=== PATIENT | female | born 2000 | race Caucasian/White ===

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

== ENCOUNTER 2025-09-13 14:31 | Inpatient (IN) ==
[2025-09-13] MEDS ORDERED: OXYTOCIN 30 UNITS/NSS 30 UNITS/500 ML BAG IV PRN (14:44)
[2025-09-13] MEDS ORDERED: LIDOCAINE 1% LOCAL 20 ML VIAL INFIL PRN (14:44)
[2025-09-13] MEDS ORDERED: LIDOCAINE 2%/EPINEPHRINE 1:200,000 20 ML PF ONE (15:13)
[2025-09-13] MEDS ORDERED: BUPIVACAINE 0.25% PF 30 ML VIAL ONE (15:13)
[2025-09-13] MEDS ORDERED: LIDOCAINE 2% MPF LOCAL 5 ML VIAL EPI PRN (15:32)
[2025-09-13] MEDS ORDERED: diphenhydrAMINE 50 MG/ML VIAL IV PRN (15:32)
[2025-09-13] MEDS ORDERED: BUPIVACAINE 0.25% PF 30 ML VIAL EPI PRN (15:32)
[2025-09-13] MEDS ORDERED: NALOXONE HCL 0.4 MG/1 ML VIAL/CARP IV PRN (15:32)
[2025-09-13] MEDS ORDERED: ROPIVACAINE 0.5% PF 5 MG/ML 20 ML VIAL EPI PRN (15:32)
[2025-09-13] MEDS ORDERED: SODIUM CHLORIDE 0.9% PF INJ 10 ML VIAL EPI PRN (15:32)
[2025-09-13] MEDS ORDERED: NALOXONE HCL 1 MG in SODIUM CHLORIDE 0.9% 1,000 ML IV PRN (15:32)
[2025-09-13] MEDS ORDERED: NALBUPHINE HCL INJ 10 MG/ML AMP IV PRN (15:32)
[2025-09-13] MEDS ORDERED: fentANYL 2 MCG/ML BUPIVacaine 0.125%-NSS 100ML BAG EPI PRN (15:32)
--- NOTE | 2025-09-13 15:32 | Anesthesiology Consultation ---
Date of Service September 13, 2025 Assessment & Plan (1) Encounter for pre-operative examination: Chart Review Chart Review: Patient NOT seen in Pre Admission Testing and Acceptable Risk for Labor Epidural Consults Requested none History Height/Weight Height: 5 ft 4 in Weight: 104.326 kg Allergies Allergy/AdvReac Type Severity Reaction Status Date / Time pollen extracts Allergy Intermediate ITCHY Verified 09/13/25 15:02 EYES, SNEEZING, CONGESTION Medications Home Medications Medication Instructions Recorded Confirmed Last Taken vit no.95-ferrous 1 tab PO DAILY 04/01/25 09/13/25 09/12/25 21:00 fumarate 28 mg-folic acid 800 mcg tablet () acetone (urine) test (Ketone Urine #50 ea 07/01/25 09/12/25 Unknown Test strips) cetirizine 10 mg capsule (Zyrtec) 10 mg PO DAILY PRN allergy 07/01/25 09/13/25 09/12/25 08:00 symptoms #1 cap magnesium 200 mg tablet 200 mg PO DAILY #30 tabs 07/01/25 09/13/25 Unknown blood sugar diagnostic #150 ea 07/03/25 09/12/25 Unknown blood-glucose meter (OneTouch #1 ea 07/03/25 09/12/25 Unknown Ultra2 Meter) lancets 30 gauge (OneTouch Delica #150 ea 07/03/25 09/12/25 Unknown Plus Lancet) FreeStyle Bebeto 3 Plus Sensor #2 ea 07/16/25 09/12/25 Unknown (blood-glucose sensor) Past Medical History Medical History Varicella vaccination Past Family History Family History Grandmother (Maternal) Breast cancer great GM Lung cancer Mother Hypertension Grandmother (Paternal) Breast cancer Father Diabetes Denies family history of Ovarian cancer Colorectal cancer Past Surgical History Surgical History S/P foot surgery, left L ankle, achilles tendon S/P endoscopy x2 Social History Smoking Status: Never smoker Do You Dip or Chew Tobacco: No Hx Alcohol Use: No Hx Substance Use: No Physical Exam Vital Signs Last Vital Signs Temp 97.9 F 09/13/25 14:42 Pulse 58 L 12/12/25 14:42 Resp 19 09/13/25 14:42 BP 137/80 09/13/25 14:42
[2025-09-13 15:48] LABS: Hematocrit (blood only) 38.0 % (37.0-47.0); Hemoglobin 13.0 g/dL (12.0-16.0); Mean Corpuscular Hemoglobin 29.2 pg (25.0-34.0); Mean Corpuscular Volume 85.4 fL (80.0-100.0); Platelet Count 165 K/uL (130-400); RDW Standard Deviation 43.4 fL (36.4-46.3); Red Blood Count 4.45 M/uL (4.20-5.40); White Blood Count 10.43 K/ul (4.8-10.8)
[2025-09-13] MEDS: LACTATED RINGER'S 1,000 ML IV PRN (16:35)
[2025-09-13] MEDS: OXYTOCIN 30 UNITS/NSS 30 UNITS/500 ML BAG IV PRN (16:36)
[2025-09-13] MEDS: BUPIVACAINE 0.25% PF 30 ML VIAL EPI STA (19:09)
[2025-09-13] MEDS: LIDOCAINE 2%/EPINEPHRINE 1:200,000 20 ML PF EPI STA (19:10)
[2025-09-13] MEDS: SODIUM CHLORIDE 0.9% PF INJ 10 ML VIAL EPI STA (19:10)
[2025-09-14] MEDS: LIDOCAINE 2%/EPINEPHRINE 1:200,000 20 ML PF ONE (03:37)
[2025-09-14] MEDS: BUPIVACAINE 0.25% PF 30 ML VIAL ONE (03:38)
[2025-09-14] MEDS: fentANYL 2 MCG/ML BUPIVacaine 0.125%-NSS 100ML BAG ONE (03:39)
[2025-09-14] MEDS: SODIUM CHLORIDE 0.9% PF INJ 10 ML VIAL ONE (04:16)
--- NOTE | 2025-09-14 06:48 | Labor Progress Brief Note ---
Date of Service September 14, 2025 Subjective Sleeping, comfortable with epidural Assessment & Plan (1) Encounter for induction of labor: Plan: Minimal change since moreno out. ROM now and ctx frequency already good so 1/2 pit and climb again. Admission and Anticipated Discharge Date Admission Date: September 13, 2025 Physical Exam Genitourinary: Cervix 3/hi AROM clear fluid FHT Cat 1 Pit @ 16 Ione Q3 Results & Data Vital Signs (Past 12 Hours) Vital Signs Temp Pulse Resp BP Pulse Ox 09/14/25 06:45 59 L 118/58 L 09/14/25 06:43 63 96 09/14/25 06:38 63 96 09/14/25 06:33 62 96 09/14/25 06:31 67 121/68 09/14/25 06:30 18 09/14/25 06:30 18 09/14/25 06:28 60 97 09/14/25 06:27 97.9 F 09/14/25 06:23 66 95 09/14/25 06:18 77 96 09/14/25 06:16 66 124/57 L 09/14/25 06:13 66 95 09/14/25 06:08 61 96 09/14/25 06:06 63 94 09/14/25 06:03 66 95 09/14/25 06:00 73 18 114/63 09/14/25 05:58 60 95 09/14/25 05:57 58 L 94 09/14/25 05:53 67 95 09/14/25 05:51 66 94 09/14/25 05:48 67 95 09/14/25 05:45 66 108/58 L 09/14/25 05:44 65 94 09/14/25 05:43 66 95 09/14/25 05:38 64 95 09/14/25 05:33 64 95 09/14/25 05:31 60 108/59 L 09/14/25 05:30 18 09/14/25 05:30 18 09/14/25 05:28 66 94 09/14/25 05:26 66 94 09/14/25 05:23 61 94 09/14/25 05:20 74 94 09/14/25 05:18 73 95 09/14/25 05:16 54 L 109/59 L 09/14/25 05:14 65 93 09/14/25 05:13 84 93 09/14/25 05:09 70 93 09/14/25 05:08 73 95 09/14/25 05:03 95 09/14/25 05:03 64 09/14/25 05:03 59 L 94 09/14/25 05:01 64 111/54 L 09/14/25 05:00 18 09/14/25 05:00 18 09/14/25 04:58 63 95 09/14/25 04:57 61 94 09/14/25 04:53 60 95 09/14/25 04:51 61 94 09/14/25 04:48 63 95 09/14/25 04:46 62 104/59 L 09/14/25 04:43 95 09/14/25 04:43 65 09/14/25 04:43 63 94 09/14/25 04:38 59 L 95 09/14/25 04:37 59 L 94 09/14/25 04:33 62 95 09/14/25 04:30 53 L 18 110/54 L 09/14/25 04:29 58 L 94 09/14/25 04:28 63 95 09/14/25 04:23 60 95 09/14/25 04:18 57 L 95 09/14/25 04:13 58 L 18 101/54 L 95 09/14/25 04:10 56 L 103/53 L 09/14/25 04:08 56 L 18 96 09/14/25 04:04 55 L 104/52 L 09/14/25 04:03 57 L 18 96 09/14/25 04:00 58 L 109/53 L 09/14/25 03:58 59 L 18 96 09/14/25 03:53 61 18 106/57 L 96 09/14/25 03:48 58 L 18 105/55 L 97 09/14/25 03:43 61 18 100/55 L 97 09/14/25 03:42 56 L 18 100/55 L 09/14/25 03:41 62 104/59 L 09/14/25 03:40 107/55 L 09/14/25 03:39 58 L 18 107/56 L 09/14/25 03:38 97 09/14/25 03:38 63 09/14/25 03:38 55 L 113/58 L 09/14/25 03:33 59 L 98 09/14/25 03:29 78 135/89 09/14/25 03:28 62 98 09/14/25 03:23 62 98 09/14/25 03:18 54 L 96 09/14/25 03:13 56 L 97 09/14/25 02:59 18 09/14/25 02:59 97.5 F L 18 09/14/25 02:29 61 122/69 09/14/25 02:00 18 09/14/25 02:00 18 09/14/25 01:30 18 09/14/25 01:30 18 09/14/25 01:29 52 L 118/57 L 09/14/25 01:00 18 09/14/25 01:00 18 09/14/25 00:29 53 L 115/58 L 09/14/25 00:00 18 09/13/25 23:30 18 09/13/25 23:30 18 09/13/25 23:29 55 L 09/13/25 23:29 113/64 09/13/25 23:00 18 09/13/25 23:00 97.5 F L 18 09/13/25 22:30 55 L 09/13/25 22:30 112/57 L 09/13/25 21:30 18 09/13/25 21:30 18 09/13/25 21:30 51 L 09/13/25 21:30 116/60 09/13/25 21:00 18 09/13/25 21:00 97.5 F L 18 09/13/25 20:34 56 L 09/13/25 20:34 136/72 09/13/25 20:30 18 09/13/25 20:30 18 09/13/25 19:44 18 09/13/25 19:44 18 09/13/25 19:30 18 09/13/25 19:30 18 09/13/25 19:29 52 L 09/13/25 19:29 118/59 L 09/13/25 19:00 97.7 F 18 09/13/25 18:57 56 L 09/13/25 18:57 116/60 Coding Level of Care Code None Diagnoses Encounter for induction of labor Z34.90
--- NOTE | 2025-09-14 08:48 | Labor Progress Brief Note ---
Date of Service September 14, 2025 Subjective comfortable Assessment & Plan (1) Encounter for induction of labor: (2) Gestational diabetes: (3) Obesity affecting : Plan continue current management plan, fetus overall category one. monitor closely. Admission and Anticipated Discharge Date Admission Date: September 13, 2025 Physical Exam Physical Exam: cx--4/50/-2 iupc placed as unable to track contractions efm--150s with min to mod variability, accels present, +scalp stim, early decels with some contractions Results & Data Vital Signs (Past 12 Hours) Vital Signs Temp Pulse Resp BP Pulse Ox 09/14/25 08:46 65 110/57 L 09/14/25 08:43 68 97 09/14/25 08:38 55 L 98 09/14/25 08:33 69 97 09/14/25 08:30 61 101/55 L 09/14/25 08:28 54 L 96 09/14/25 08:23 58 L 96 09/14/25 08:18 78 97 09/14/25 08:15 62 122/62 09/14/25 08:13 62 96 09/14/25 08:08 68 95 09/14/25 08:03 57 L 95 09/14/25 08:00 55 L 18 126/64 09/14/25 07:58 71 96 09/14/25 07:53 60 96 09/14/25 07:48 85 96 09/14/25 07:45 62 122/59 L 09/14/25 07:43 58 L 96 09/14/25 07:38 58 L 96 09/14/25 07:33 66 96 09/14/25 07:30 57 L 127/66 09/14/25 07:28 62 96 09/14/25 07:23 66 97 09/14/25 07:18 63 96 09/14/25 07:15 37.0 C 62 18 121/58 L 09/14/25 07:13 65 96 09/14/25 07:09 64 94 09/14/25 07:08 59 L 96 09/14/25 07:03 64 96 09/14/25 07:00 63 121/56 L 09/14/25 06:58 63 96 09/14/25 06:53 60 96 09/14/25 06:48 60 95 09/14/25 06:45 59 L 118/58 L 09/14/25 06:43 63 96 09/14/25 06:38 63 96 09/14/25 06:33 62 96 09/14/25 06:31 67 121/68 09/14/25 06:30 18 09/14/25 06:30 18 09/14/25 06:28 60 97 09/14/25 06:27 36.6 C 09/14/25 06:23 66 95 09/14/25 06:18 77 96 09/14/25 06:16 66 124/57 L 09/14/25 06:13 66 95 09/14/25 06:08 61 96 09/14/25 06:06 63 94 09/14/25 06:03 66 95 09/14/25 06:00 73 18 114/63 09/14/25 05:58 60 95 09/14/25 05:57 58 L 94 09/14/25 05:53 67 95 09/14/25 05:51 66 94 09/14/25 05:48 67 95 09/14/25 05:45 66 108/58 L 09/14/25 05:44 65 94 09/14/25 05:43 66 95 09/14/25 05:38 64 95 09/14/25 05:33 64 95 09/14/25 05:31 60 108/59 L 09/14/25 05:30 18 09/14/25 05:30 18 09/14/25 05:28 66 94 09/14/25 05:26 66 94 09/14/25 05:23 61 94 09/14/25 05:20 74 94 09/14/25 05:18 73 95 09/14/25 05:16 54 L 109/59 L 09/14/25 05:14 65 93 09/14/25 05:13 84 93 09/14/25 05:09 70 93 09/14/25 05:08 73 95 09/14/25 05:03 95 09/14/25 05:03 64 09/14/25 05:03 59 L 94 09/14/25 05:01 64 111/54 L 09/14/25 05:00 18 09/14/25 05:00 18 09/14/25 04:58 63 95 09/14/25 04:57 61 94 09/14/25 04:53 60 95 09/14/25 04:51 61 94 09/14/25 04:48 63 95 09/14/25 04:46 62 104/59 L 09/14/25 04:43 95 09/14/25 04:43 65 09/14/25 04:43 63 94 09/14/25 04:38 59 L 95 09/14/25 04:37 59 L 94 09/14/25 04:33 62 95 09/14/25 04:30 53 L 18 110/54 L 09/14/25 04:29 58 L 94 09/14/25 04:28 63 95 09/14/25 04:23 60 95 09/14/25 04:18 57 L 95 09/14/25 04:13 58 L 18 101/54 L 95 09/14/25 04:10 56 L 103/53 L 09/14/25 04:08 56 L 18 96 09/14/25 04:04 55 L 104/52 L 09/14/25 04:03 57 L 18 96 09/14/25 04:00 58 L 109/53 L 09/14/25 03:58 59 L 18 96 09/14/25 03:53 61 18 106/57 L 96 09/14/25 03:48 58 L 18 105/55 L 97 09/14/25 03:43 61 18 100/55 L 97 09/14/25 03:42 56 L 18 100/55 L 09/14/25 03:41 62 104/59 L 09/14/25 03:40 107/55 L 09/14/25 03:39 58 L 18 107/56 L 09/14/25 03:38 97 09/14/25 03:38 63 09/14/25 03:38 55 L 113/58 L 09/14/25 03:33 59 L 98 09/14/25 03:29 78 135/89 09/14/25 03:28 62 98 09/14/25 03:23 62 98 09/14/25 03:18 54 L 96 09/14/25 03:13 56 L 97 09/14/25 02:59 18 09/14/25 02:59 36.4 C L 18 09/14/25 02:29 61 122/69 09/14/25 02:00 18 09/14/25 02:00 18 09/14/25 01:30 18 09/14/25 01:30 18 09/14/25 01:29 52 L 118/57 L 09/14/25 01:00 18 09/14/25 01:00 18 09/14/25 00:29 53 L 115/58 L 09/14/25 00:00 18 09/13/25 23:30 18 09/13/25 23:30 18 09/13/25 23:29 55 L 09/13/25 23:29 113/64 09/13/25 23:00 18 09/13/25 23:00 36.4 C L 18 09/13/25 22:30 55 L 09/13/25 22:30 112/57 L 09/13/25 21:30 18 09/13/25 21:30 18 09/13/25 21:30 51 L 09/13/25 21:30 116/60 09/13/25 21:00 18 09/13/25 21:00 36.4 C L 18 Coding Level of Care Code None Diagnoses Encounter for induction of labor Z34.90 Gestational diabetes O24.419 Obesity affecting O99.210
--- NOTE | 2025-09-14 12:54 | Labor Progress Brief Note ---
Date of Service September 14, 2025 Subjective comfortable with epidural Assessment & Plan (1) Encounter for induction of labor: (2) Gestational diabetes: (3) Obesity affecting : (4) Non-reassuring electronic monitoring tracing: Plan category two stip, reverting to category one with recus/d/c pitocin. Discussed could try again , but will likely need more pitocin and the possibility of this happening again is somewhat high. Discussed we could move forward wtih c/s delivery. The patient desires to proceed with c/s. The risks of surgery were discussed with the patient including the risks of anesthesia, bleeding requiring transfusion, infection, poor wound healing, urinary retention, damage to surrounding structures including bowels, bladder, vessels, nerves and ureters that may require further surgery, hospitalization or intervention. The other risks of any surgery were discussed including heart attack, blood clots, stroke or . Discussed risk of injury to fetus. Consent reviewed and signed. Admission and Anticipated Discharge Date Admission Date: September 13, 2025 Physical Exam Physical Exam: recently checked by nursing and unchanged contractions not yet adequate, pit at 18--now off efm--150s wtih min to mod variability, accels present and spon, intermittent late decels with some contractions. fht have reverted to category one with resuscitation and d/c pitocin Results & Data Vital Signs (Past 12 Hours) Vital Signs Temp Pulse Resp BP Pulse Ox 09/14/25 12:48 64 98 09/14/25 12:43 84 99 09/14/25 12:40 91 H 93 09/14/25 12:38 58 L 95 09/14/25 12:33 54 L 97 09/14/25 12:32 53 L 104/55 L 09/14/25 12:31 57 L 88/54 L 09/14/25 12:28 78 97 09/14/25 12:23 70 96 09/14/25 12:18 69 97 09/14/25 12:15 58 L 121/60 09/14/25 12:13 71 97 09/14/25 12:08 78 97 09/14/25 12:03 69 97 09/14/25 12:02 67 135/78 09/14/25 11:58 67 96 09/14/25 11:53 63 97 09/14/25 11:48 71 97 09/14/25 11:46 58 L 112/58 L 09/14/25 11:43 68 97 09/14/25 11:38 69 97 09/14/25 11:34 64 92 09/14/25 11:33 65 96 09/14/25 11:28 69 97 09/14/25 11:23 54 L 98 09/14/25 11:18 53 L 97 09/14/25 11:15 52 L 110/54 L 09/14/25 11:13 56 L 98 09/14/25 11:08 81 94 09/14/25 11:03 61 98 09/14/25 11:00 36.7 C 73 20 132/72 09/14/25 10:58 65 97 09/14/25 10:53 65 97 09/14/25 10:48 64 97 09/14/25 10:46 66 128/67 09/14/25 10:43 65 97 09/14/25 10:38 61 98 09/14/25 10:33 69 96 09/14/25 10:31 61 134/69 09/14/25 10:28 62 97 09/14/25 10:23 63 97 09/14/25 10:18 71 98 09/14/25 10:16 63 135/67 09/14/25 10:13 97 09/14/25 10:13 75 09/14/25 10:13 67 93 09/14/25 10:08 63 97 09/14/25 10:03 70 97 09/14/25 09:58 61 97 09/14/25 09:53 70 95 09/14/25 09:48 67 97 09/14/25 09:46 83 128/78 09/14/25 09:43 66 98 09/14/25 09:38 72 97 09/14/25 09:33 68 98 09/14/25 09:30 60 122/59 L 09/14/25 09:28 85 96 09/14/25 09:23 69 97 09/14/25 09:18 74 97 09/14/25 09:15 69 104/56 L 09/14/25 09:14 65 94 09/14/25 09:13 60 95 09/14/25 09:08 53 L 96 09/14/25 09:03 56 L 95 09/14/25 09:00 66 107/53 L 09/14/25 08:58 67 95 09/14/25 08:53 65 95 09/14/25 08:48 62 96 09/14/25 08:46 36.8 C 65 20 110/57 L 09/14/25 08:43 68 97 09/14/25 08:38 55 L 98 09/14/25 08:33 69 97 09/14/25 08:30 61 101/55 L 09/14/25 08:28 54 L 96 09/14/25 08:23 58 L 96 09/14/25 08:18 78 97 09/14/25 08:15 62 122/62 09/14/25 08:13 62 96 09/14/25 08:08 68 95 09/14/25 08:03 57 L 95 09/14/25 08:00 55 L 18 126/64 09/14/25 07:58 71 96 09/14/25 07:53 60 96 09/14/25 07:48 85 96 09/14/25 07:45 62 122/59 L 09/14/25 07:43 58 L 96 09/14/25 07:38 58 L 96 09/14/25 07:33 66 96 09/14/25 07:30 57 L 127/66 09/14/25 07:28 62 96 09/14/25 07:23 66 97 09/14/25 07:18 63 96 09/14/25 07:15 37.0 C 62 18 121/58 L 09/14/25 07:13 65 96 09/14/25 07:09 64 94 09/14/25 07:08 59 L 96 09/14/25 07:03 64 96 09/14/25 07:00 63 121/56 L 09/14/25 06:58 63 96 09/14/25 06:53 60 96 09/14/25 06:48 60 95 09/14/25 06:45 59 L 118/58 L 09/14/25 06:43 63 96 09/14/25 06:38 63 96 09/14/25 06:33 62 96 09/14/25 06:31 67 121/68 09/14/25 06:30 18 09/14/25 06:30 18 09/14/25 06:28 60 97 09/14/25 06:27 36.6 C 09/14/25 06:23 66 95 09/14/25 06:18 77 96 09/14/25 06:16 66 124/57 L 09/14/25 06:13 66 95 09/14/25 06:08 61 96 09/14/25 06:06 63 94 09/14/25 06:03 66 95 09/14/25 06:00 73 18 114/63 09/14/25 05:58 60 95 09/14/25 05:57 58 L 94 09/14/25 05:53 67 95 09/14/25 05:51 66 94 09/14/25 05:48 67 95 09/14/25 05:45 66 108/58 L 09/14/25 05:44 65 94 09/14/25 05:43 66 95 09/14/25 05:38 64 95 09/14/25 05:33 64 95 09/14/25 05:31 60 108/59 L 09/14/25 05:30 18 09/14/25 05:30 18 09/14/25 05:28 66 94 09/14/25 05:26 66 94 09/14/25 05:23 61 94 09/14/25 05:20 74 94 09/14/25 05:18 73 95 09/14/25 05:16 54 L 109/59 L 09/14/25 05:14 65 93 09/14/25 05:13 84 93 09/14/25 05:09 70 93 09/14/25 05:08 73 95 09/14/25 05:03 95 09/14/25 05:03 64 09/14/25 05:03 59 L 94 09/14/25 05:01 64 111/54 L 09/14/25 05:00 18 09/14/25 05:00 18 09/14/25 04:58 63 95 09/14/25 04:57 61 94 09/14/25 04:53 60 95 09/14/25 04:51 61 94 09/14/25 04:48 63 95 09/14/25 04:46 62 104/59 L 09/14/25 04:43 95 09/14/25 04:43 65 09/14/25 04:43 63 94 09/14/25 04:38 59 L 95 09/14/25 04:37 59 L 94 09/14/25 04:33 62 95 09/14/25 04:30 53 L 18 110/54 L 09/14/25 04:29 58 L 94 09/14/25 04:28 63 95 09/14/25 04:23 60 95 09/14/25 04:18 57 L 95 09/14/25 04:13 58 L 18 101/54 L 95 09/14/25 04:10 56 L 103/53 L 09/14/25 04:08 56 L 18 96 09/14/25 04:04 55 L 104/52 L 09/14/25 04:03 57 L 18 96 09/14/25 04:00 58 L 109/53 L 09/14/25 03:58 59 L 18 96 09/14/25 03:53 61 18 106/57 L 96 09/14/25 03:48 58 L 18 105/55 L 97 09/14/25 03:43 61 18 100/55 L 97 09/14/25 03:42 56 L 18 100/55 L 09/14/25 03:41 62 104/59 L 09/14/25 03:40 107/55 L 09/14/25 03:39 58 L 18 107/56 L 09/14/25 03:38 97 09/14/25 03:38 63 09/14/25 03:38 55 L 113/58 L 09/14/25 03:33 59 L 98 09/14/25 03:29 78 135/89 09/14/25 03:28 62 98 09/14/25 03:23 62 98 09/14/25 03:18 54 L 96 09/14/25 03:13 56 L 97 09/14/25 02:59 18 09/14/25 02:59 36.4 C L 18 09/14/25 02:29 61 122/69 09/14/25 02:00 18 09/14/25 02:00 18 09/14/25 01:30 18 09/14/25 01:30 18 09/14/25 01:29 52 L 118/57 L 09/14/25 01:00 18 09/14/25 01:00 18 Coding Level of Care Code None Diagnoses Encounter for induction of labor Z34.90 Gestational diabetes O24.419 Obesity affecting O99.210 Non-reassuring electronic monitoring tracing O36.8390
[2025-09-14] MEDS: ACETAMINOPHEN 500 MG TAB PO SCH (13:05)
[2025-09-14] MEDS: CITRIC ACID/SODIUM CITRATE 15 ML UDC PO SCH (13:05)
[2025-09-14] MEDS: ACETAMINOPHEN 500 MG TAB ONE (13:06)
[2025-09-14] MEDS: ceFAZolin 3000MG 3,000 MG/72.5 ML BAG IV SCH (13:06)
--- NOTE | 2025-09-14 13:13 | Communication Note ---
Date of Service: September 14, 2025 Pt to OR for emergent C sec
[2025-09-14] MEDS ORDERED: LIDOCAINE 2%/EPINEPHRINE 1:200,000 20 ML PF ONE (13:17)
[2025-09-14] MEDS ORDERED: OXYTOCIN 10 UNITS/ML VIAL ONE (13:19)
[2025-09-14] MEDS: AZITHROMYCIN 500 MG/255 ML BAG IV SCH (13:42)
[2025-09-14] MEDS ORDERED: ONDANSETRON INJ 2 MG/ML 2 ML VIAL ONE (13:55)
[2025-09-14] MEDS ORDERED: MoRPHine SULFATE PF 1 MG/ML 10 ML AMP/VIAL ONE (14:18)
[2025-09-14] MEDS ORDERED: LACTATED RINGER'S 500 ML IV PRN (14:26)
[2025-09-14] MEDS ORDERED: ONDANSETRON INJ 2 MG/ML 2 ML VIAL IV PRN ×2 (14:26→14:32)
[2025-09-14] MEDS ORDERED: NALOXONE HCL 1 MG in SODIUM CHLORIDE 0.9% 1,000 ML IV PRN (14:26)
[2025-09-14] MEDS ORDERED: PROMETHAZINE 6.25 MG/50.25 ML BAG IV PRN (14:26)
[2025-09-14] MEDS ORDERED: diphenhydrAMINE 50 MG/ML VIAL IV PRN (14:26)
[2025-09-14] MEDS ORDERED: NALBUPHINE HCL INJ 10 MG/ML AMP IV PRN (14:26)
[2025-09-14] MEDS ORDERED: NALOXONE HCL 0.4 MG/1 ML VIAL/CARP IV PRN (14:26)
[2025-09-14] MEDS ORDERED: NALOXONE HCL 0.08 MG in SYRINGE 1.8 ML IV PRN (14:26)
[2025-09-14] MEDS ORDERED: DC INTRASPINAL MORPHINE SCH (14:30)
[2025-09-14] MEDS ORDERED: NO NARCOTICS OR SEDATIVES SCH (14:30)
[2025-09-14] MEDS ORDERED: HYDROCORTISONE ACETATE 25 MG SUPP PR PRN (14:32)
[2025-09-14] MEDS ORDERED: BENZOCAINE 20% SPRY 85 APPLN/85 GM CAN EXT PRN (14:32)
[2025-09-14] MEDS ORDERED: CALCIUM CARBONATE 500 MG CHEWABLE TAB PO PRN (14:32)
[2025-09-14] MEDS ORDERED: MAGNESIUM HYDROXIDE SUSP 30 ML UDC PO PRN (14:32)
[2025-09-14] MEDS ORDERED: SENNA 8.6 MG TAB PO PRN (14:32)
--- NOTE | 2025-09-14 14:39 | Operative Report ---
PG Post Operative Report Pre & Post Diagnosis Operation Date: 09/14/25 12:55 Pre-Op Diagnosis: 1. Non Reassuring Strip 2. at 40 5/7 3. obesity 4. a1gdm Post-Op Diagnosis: Same as above I identified the patient and participated in the time-out.: Yes Procedure Operation Date: 09/14/25 12:55 Actual Procedures p primary low transverse Section in [facility] @ [id number] - Lynne Hendrix MD, FACOG Surgeon Lynne Hendrix MD, FACOG Testing Tech Mary Gaspar RN Estimated Blood Loss 413 Findings Consistent with Post-Op Diagnosis Viable female infant, cephalic, apgars 9/9. normal appearing uterus, tubes, ovaries Fluids ivf--1600cc uop--100cc Specimens none Drains moreno Anesthesia Type General Complications none Disposition Accompanied Patient To Recovery: Yes Disposition: L&D Indications 24 who presents for iol for postdates, obesity, GDM. Got moreno, arom and pit. Was unable to get patient into an adequate contraction pattern without the baby having late decels. Resolved with d/c of pitocin. Had happened on a couple of occasions. Description of Procedure The patient was taken to the operating room where she was identified verbally and by bracelet. She was then placed in the supine position with a leftward tilt. A Moreno catheter had been placed sterilely. the patient was prepped and draped in a normal standard fashion. Epidural was dosed. the anesthetic was tested and found to be adequate. A time-out was held, identifying correct patient, procedure, positioning and preoperative antibiotics. There were no concerns. A Pfannenstiel skin incision was made with a knife and taken down to the underlying layer of fascia with the knife and Bovie electrocautery. Bleeding was attended to with the Bovie. The fascia was incised in the midline with the knife and taken out laterally with scissors. The superior edge of the fascial incision was grasped, elevated and the underlying layer of rectus muscle was taken off bluntly and with scissors. In a similar fashion, the inferior edge of the fascial incision was grasped, elevated and the underlying layer of rectus muscle was taken off bluntly and with scissors. The muscles were bluntly in the midline. The peritoneum was entered bluntly. The incision was then stretched. The bladder blade was placed. The vesicouterine peritoneum was identified, entered with scissors and taken out laterally with scissors. The bladder flap was created digitally A hysterotomy incision was scored with a knife and the incision was stretched superiorly and inferiorly with the sonoscope operator's fingers. The operators hand was placed into the incision and the head was delivered atraumatically. No nuchal cord. The nose and mouth were bulb suctioned. the rest of the infant was then delivered without difficulty. The nose and mouth were again bulb suctioned. The cord was clamped and cut and the was then handed off to the awaiting booking agent for drying and attention. Cord blood and segment were obtained. The placenta was Manually extracted. The uterus was exteriorized and cleared of all clot and debris with moistened laparotomy sponges. The hysterotomy incision was repaired in two layers, the first in a running locked layer, the second in an imbricating layer. there was a small extension of the uterine incision to the right. Hemostasis was noted to be good. Posterior cul-de-sac was irrigated and cleared of all clot and debris. The hysterotomy incision was again inspected and found to be hemostatic. the uterus was reinteriorized. Hysterotomy incision was again inspected .one figure of 8 suture needed, and found to be hemostatic. The fascia was then reapproximated with 0 Vicryl starting at the edges and meeting in the midline. The subcuticular tissues were copiously irrigated and bleeding was attended to with cautery. The skin was then closed with 4-0 Vicryl in a subcuticular fashion. All sponge, lap and needle counts were correct x 2. the patient tolerated the procedure well and was taken to the recovery room in stable condition. I attest to the content of the Intraoperative Record and any orders documented therein. Any exceptions are noted below. OB Procedure Charges 76050
[2025-09-14] MEDS ORDERED: LACTATED RINGER'S 1,000 ML IV SCH (14:45)
[2025-09-14] MEDS: OXYTOCIN 20 UNITS/LR 1,002 ML IV SCH (14:49)
[2025-09-14] MEDS: KETOROLAC 30 MG/ML VIAL IV SCH (14:56)
--- NOTE | 2025-09-14 15:20 | Anesthesia Procedure Note ---
Date of Service September 14, 2025 Anesthesia Post Epidural Note Vital Signs Vital Signs: Temp Pulse Resp BP Pulse Ox 36.4 C L 72 20 120/60 97 09/14/25 14:45 09/14/25 15:18 09/14/25 15:05 09/14/25 15:16 09/14/25 15:18 Pain Intensity Bilateral Abdomen: Pain Intensity: 0 Notes Mental Status: alert / awake / arousable Nausea / Vomiting: adequately controlled Pain: adequately controlled Airway Patency, RR, SpO2: stable & adequate BP & HR: stable & adequate Hydration State: stable & adequate Neuraxial Anesthesia: was administered and sensory block is resolving Anesthetic Complications: no major complications apparent Epidural: Removed without complications and With tip intact
[2025-09-14] MEDS: DIPHTHER/TETAN/PERTUS Vaccine (Tdap, Adol/Adult) 0.5mL IM ONE (15:33)
[2025-09-14] MEDS: SODIUM CHLORIDE 0.9% 1,000 ML IV SCH (15:33)
[2025-09-14] MEDS: MoRPHine SULFATE PF 1 MG/ML 10 ML AMP/VIAL INT SPINAL ONE (15:34)
--- NOTE | 2025-09-14 16:03 | Anesthesiology Progress Note ---
Date of Service September 14, 2025 Anesthesia Post Procedure Vital Signs Vital Signs: Temp Pulse Resp BP Pulse Ox 09/14/25 15:58 74 96 09/14/25 15:56 64 111/54 L 09/14/25 15:53 77 96 09/14/25 15:48 67 96 09/14/25 15:46 72 112/62 09/14/25 15:43 69 96 09/14/25 15:38 74 96 09/14/25 15:36 70 106/56 L 09/14/25 15:33 68 96 09/14/25 15:28 69 97 09/14/25 15:27 73 129/59 L 09/14/25 15:25 18 09/14/25 15:23 87 96 09/14/25 15:18 72 97 09/14/25 15:16 77 120/60 09/14/25 15:15 18 09/14/25 15:13 79 97 09/14/25 15:08 90 96 09/14/25 15:06 88 125/58 L 09/14/25 15:05 20 09/14/25 15:03 81 96 09/14/25 14:59 84 94 09/14/25 14:58 86 97 09/14/25 14:56 87 127/65 09/14/25 14:55 18 09/14/25 14:53 88 97 09/14/25 14:48 72 97 09/14/25 14:46 82 126/61 09/14/25 14:45 36.4 C L 18 09/14/25 14:43 77 96 09/14/25 14:38 90 97 09/14/25 14:33 89 128/61 95 09/14/25 13:33 89 97 09/14/25 13:31 91 H 148/66 H 09/14/25 13:28 72 97 09/14/25 13:26 65 121/58 L 09/14/25 13:23 67 98 09/14/25 13:18 60 98 09/14/25 13:15 58 L 121/59 L 09/14/25 13:13 68 97 09/14/25 13:08 63 98 09/14/25 13:03 72 98 09/14/25 13:01 58 L 20 124/61 09/14/25 13:00 20 09/14/25 13:00 36.8 C 20 09/14/25 12:58 97 H 98 09/14/25 12:57 83 93 09/14/25 12:53 74 98 09/14/25 12:48 64 98 09/14/25 12:43 84 99 09/14/25 12:40 91 H 93 09/14/25 12:38 58 L 95 09/14/25 12:33 54 L 97 09/14/25 12:32 53 L 104/55 L 09/14/25 12:31 57 L 88/54 L 09/14/25 12:28 78 97 09/14/25 12:23 70 96 09/14/25 12:18 69 97 09/14/25 12:15 58 L 121/60 09/14/25 12:13 71 97 09/14/25 12:08 78 97 09/14/25 12:03 69 97 09/14/25 12:02 67 135/78 09/14/25 11:58 67 96 09/14/25 11:53 63 97 09/14/25 11:48 71 97 09/14/25 11:46 58 L 112/58 L 09/14/25 11:43 68 97 09/14/25 11:38 69 97 09/14/25 11:34 64 92 09/14/25 11:33 65 96 09/14/25 11:28 69 97 09/14/25 11:23 54 L 98 09/14/25 11:18 53 L 97 09/14/25 11:15 52 L 110/54 L 09/14/25 11:13 56 L 98 09/14/25 11:08 81 94 09/14/25 11:03 61 98 09/14/25 11:00 36.7 C 73 20 132/72 09/14/25 10:58 65 97 09/14/25 10:53 65 97 09/14/25 10:48 64 97 09/14/25 10:46 66 128/67 09/14/25 10:43 65 97 09/14/25 10:38 61 98 09/14/25 10:33 69 96 09/14/25 10:31 61 134/69 09/14/25 10:28 62 97 09/14/25 10:23 63 97 09/14/25 10:18 71 98 09/14/25 10:16 63 135/67 09/14/25 10:13 97 09/14/25 10:13 75 09/14/25 10:13 67 93 09/14/25 10:08 63 97 09/14/25 10:03 70 97 09/14/25 09:58 61 97 09/14/25 09:53 70 95 09/14/25 09:48 67 97 09/14/25 09:46 83 128/78 09/14/25 09:43 66 98 09/14/25 09:38 72 97 09/14/25 09:33 68 98 09/14/25 09:30 60 122/59 L 09/14/25 09:28 85 96 09/14/25 09:23 69 97 09/14/25 09:18 74 97 09/14/25 09:15 69 104/56 L 09/14/25 09:14 65 94 09/14/25 09:13 60 95 09/14/25 09:08 53 L 96 09/14/25 09:03 56 L 95 09/14/25 09:00 66 107/53 L 09/14/25 08:58 67 95 09/14/25 08:53 65 95 09/14/25 08:48 62 96 09/14/25 08:46 36.8 C 65 20 110/57 L 09/14/25 08:43 68 97 09/14/25 08:38 55 L 98 09/14/25 08:33 69 97 09/14/25 08:30 61 101/55 L 09/14/25 08:28 54 L 96 09/14/25 08:23 58 L 96 09/14/25 08:18 78 97 09/14/25 08:15 62 122/62 09/14/25 08:13 62 96 09/14/25 08:08 68 95 09/14/25 08:03 57 L 95 09/14/25 08:00 55 L 18 126/64 09/14/25 07:58 71 96 09/14/25 07:53 60 96 09/14/25 07:48 85 96 09/14/25 07:45 62 122/59 L 09/14/25 07:43 58 L 96 09/14/25 07:38 58 L 96 09/14/25 07:33 66 96 09/14/25 07:30 57 L 127/66 09/14/25 07:28 62 96 09/14/25 07:23 66 97 09/14/25 07:18 63 96 09/14/25 07:15 37.0 C 62 18 121/58 L 09/14/25 07:13 65 96 09/14/25 07:09 64 94 09/14/25 07:08 59 L 96 09/14/25 07:03 64 96 09/14/25 07:00 63 121/56 L 09/14/25 06:58 63 96 09/14/25 06:53 60 96 09/14/25 06:48 60 95 09/14/25 06:45 59 L 118/58 L 09/14/25 06:43 63 96 09/14/25 06:38 63 96 09/14/25 06:33 62 96 09/14/25 06:31 67 121/68 09/14/25 06:30 18 09/14/25 06:30 18 09/14/25 06:28 60 97 09/14/25 06:27 36.6 C 09/14/25 06:23 66 95 09/14/25 06:18 77 96 09/14/25 06:16 66 124/57 L 09/14/25 06:13 66 95 09/14/25 06:08 61 96 09/14/25 06:06 63 94 09/14/25 06:03 66 95 09/14/25 06:00 73 18 114/63 09/14/25 05:58 60 95 09/14/25 05:57 58 L 94 09/14/25 05:53 67 95 09/14/25 05:51 66 94 09/14/25 05:48 67 95 09/14/25 05:45 66 108/58 L 09/14/25 05:44 65 94 09/14/25 05:43 66 95 09/14/25 05:38 64 95 09/14/25 05:33 64 95 09/14/25 05:31 60 108/59 L 09/14/25 05:30 18 09/14/25 05:30 18 09/14/25 05:28 66 94 09/14/25 05:26 66 94 09/14/25 05:23 61 94 09/14/25 05:20 74 94 09/14/25 05:18 73 95 09/14/25 05:16 54 L 109/59 L 09/14/25 05:14 65 93 09/14/25 05:13 84 93 09/14/25 05:09 70 93 09/14/25 05:08 73 95 09/14/25 05:03 95 09/14/25 05:03 64 09/14/25 05:03 59 L 94 09/14/25 05:01 64 111/54 L 09/14/25 05:00 18 09/14/25 05:00 18 09/14/25 04:58 63 95 09/14/25 04:57 61 94 09/14/25 04:53 60 95 09/14/25 04:51 61 94 09/14/25 04:48 63 95 09/14/25 04:46 62 104/59 L 09/14/25 04:43 95 09/14/25 04:43 65 09/14/25 04:43 63 94 09/14/25 04:38 59 L 95 09/14/25 04:37 59 L 94 09/14/25 04:33 62 95 09/14/25 04:30 53 L 18 110/54 L 09/14/25 04:29 58 L 94 09/14/25 04:28 63 95 09/14/25 04:23 60 95 09/14/25 04:18 57 L 95 09/14/25 04:13 58 L 18 101/54 L 95 09/14/25 04:10 56 L 103/53 L 09/14/25 04:08 56 L 18 96 09/14/25 04:04 55 L 104/52 L 09/14/25 04:03 57 L 18 96 09/14/25 04:00 58 L 109/53 L 09/14/25 03:58 59 L 18 96 09/14/25 03:53 61 18 106/57 L 96 09/14/25 03:48 58 L 18 105/55 L 97 09/14/25 03:43 61 18 100/55 L 97 09/14/25 03:42 56 L 18 100/55 L 09/14/25 03:41 62 104/59 L 09/14/25 03:40 107/55 L 09/14/25 03:39 58 L 18 107/56 L 09/14/25 03:38 97 09/14/25 03:38 63 09/14/25 03:38 55 L 113/58 L 09/14/25 03:33 59 L 98 09/14/25 03:29 78 135/89 09/14/25 03:28 62 98 09/14/25 03:23 62 98 09/14/25 03:18 54 L 96 09/14/25 03:13 56 L 97 09/14/25 02:59 18 09/14/25 02:59 36.4 C L 18 09/14/25 02:29 61 122/69 09/14/25 02:00 18 09/14/25 02:00 18 09/14/25 01:30 18 09/14/25 01:30 18 09/14/25 01:29 52 L 118/57 L 09/14/25 01:00 18 09/14/25 01:00 18 09/14/25 00:29 53 L 115/58 L 09/14/25 00:00 18 09/13/25 23:30 18 09/13/25 23:30 18 09/13/25 23:29 55 L 09/13/25 23:29 113/64 09/13/25 23:00 18 09/13/25 23:00 36.4 C L 18 09/13/25 22:30 55 L 09/13/25 22:30 112/57 L 09/13/25 21:30 18 09/13/25 21:30 18 09/13/25 21:30 51 L 09/13/25 21:30 116/60 09/13/25 21:00 18 09/13/25 21:00 36.4 C L 18 09/13/25 20:34 56 L 09/13/25 20:34 136/72 09/13/25 20:30 18 09/13/25 20:30 18 09/13/25 19:44 18 09/13/25 19:44 18 09/13/25 19:30 18 09/13/25 19:30 18 09/13/25 19:29 52 L 09/13/25 19:29 118/59 L 09/13/25 19:00 36.5 C 18 09/13/25 18:57 56 L 09/13/25 18:57 116/60 09/13/25 18:29 55 L 09/13/25 18:29 119/64 09/13/25 17:53 96 09/13/25 17:53 55 L 09/13/25 17:48 97 09/13/25 17:48 55 L 09/13/25 17:29 50 L 09/13/25 17:29 121/64 09/13/25 17:28 19 09/13/25 17:28 36.4 C L 19 Pain Intensity Bilateral Abdomen: Pain Intensity: 0 Transfer of Care Handoff Completed per policy Notes Mental Status: alert / awake / arousable Patient Amnestic to Procedure: Yes Nausea / Vomiting: adequately controlled Pain: adequately controlled Airway Patency, RR, SpO2: stable & adequate BP & HR: stable & adequate Hydration State: stable & adequate Neuraxial Anesthesia: was administered and sensory block is resolving Anesthetic Complications: no major complications apparent
[2025-09-14] MEDS ORDERED: HYDROmorphone INJ 0.5 MG/0.5 ML SYR IV PRN (17:18)
[2025-09-14] MEDS: HYDROmorphone INJ 0.5 MG/0.5 ML SYR ONE (17:20)
[2025-09-14] MEDS: SIMETHICONE 80 MG CHEW PO SCH (21:11)
[2025-09-14] MEDS: ACETAMINOPHEN 325 MG TAB PO SCH (21:12)
[2025-09-15] MEDS: DOCUSATE SODIUM 100 MG CAP PO SCH (03:32)
[2025-09-15 06:41] LABS: Hematocrit (blood only) 30.5 % (37.0-47.0); Hemoglobin 10.2 g/dL (12.0-16.0); Immature Granulocytes # (auto) 0.05 K/uL (0.01-0.20); Immature Granulocytes % (auto) 0.5 %; Mean Corpuscular Hemoglobin 29.1 pg (25.0-34.0); Mean Corpuscular Volume 87.1 fL (80.0-100.0); Platelet Count 123 K/uL (130-400); RDW Standard Deviation 44.0 fL (36.4-46.3); Red Blood Count 3.50 M/uL (4.20-5.40); White Blood Count 9.28 K/ul (4.8-10.8)
[2025-09-15] MEDS: FERROUS SULFATE 325 MG TAB PO SCH (07:59)
[2025-09-15] MEDS: PRENATAL VITAMIN 1 TAB PO SCH (08:00)
[2025-09-15] MEDS ORDERED: diphenhydrAMINE 50 MG/ML VIAL IV PRN (08:26)
[2025-09-15] MEDS ORDERED: HYDROmorphone INJ 0.5 MG/0.5 ML SYR IV PRN (08:26)
[2025-09-15] MEDS ORDERED: PROMETHAZINE 12.5 MG/50.5 ML BAG IV PRN (08:26)
[2025-09-15] MEDS ORDERED: diphenhydrAMINE Capsule 25 MG CAP PO PRN (08:26)
--- NOTE | 2025-09-15 09:15 | Obstetrical Progress Note ---
Date of Service September 15, 2025 Assessment & Plan (1) delivery delivered: Plan Doing well, postop day one. Routine care. Day #:: 1 Subjective Ambulation: ambulating normally Voiding: no voiding problems Passing Gas:: Yes Diet Tolerance:: regular diet Lochia:: Small Feeding Type:: breast feeding Pain controlled. Has ambulated to void. Physical Exam Constitutional WD/WN, vitals as above Cardiovascular Extremities: + edema (tr); no calf tenderness Gastrointestinal (Abdomen) soft, nt, nd, ff/appro tender at u incision c/d/i Psychiatric A+Ox3, euthymic affect Results & Data Vital Signs (Past 12 Hours) Vital Signs Temp Pulse Resp BP Pulse Ox O2 Del Method 09/15/25 08:07 14 98 09/15/25 08:07 36.7 C 76 14 107/70 98 Room Air 09/15/25 05:24 16 94 09/15/25 04:00 16 97 09/15/25 03:33 36.4 C L 84 18 115/70 100 Room Air 09/15/25 03:31 16 100 09/15/25 02:52 16 97 09/15/25 01:31 16 96 09/15/25 00:48 16 97 09/14/25 23:50 16 97 09/14/25 22:53 36.4 C L 82 16 109/66 97 Room Air 09/14/25 22:00 16 98 09/14/25 21:50 16 96
[2025-09-15] MEDS ORDERED: KETOROLAC 30 MG/ML VIAL IV PRN (14:32)
[2025-09-15] MEDS: IBUPROFEN 600 MG TAB PO SCH (14:36)
[2025-09-15 22:15] VITALS: TEMP 97.7
[2025-09-16 06:37] LABS: Hematocrit (blood only) 30.0 % (37.0-47.0); Hemoglobin 10.1 g/dL (12.0-16.0)
--- NOTE | 2025-09-16 07:40 | Obstetrical Progress Note ---
Date of Service September 16, 2025 Assessment & Plan (1) delivery delivered: Plan Doing well and meeting all milestones. Wants to see how it goes today. May d/c if does really well. Otherwise, wants to stay til tomorrow. 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 Day #:: 2 Subjective Ambulation: ambulating normally Voiding: no voiding problems Passing Gas:: Yes Diet Tolerance:: regular diet Lochia:: Small Feeding Type:: breast feeding Notes had some abd/incision pain last night. Better this am. no n/v. Physical Exam Constitutional WD/WN, vitals as above Cardiovascular Extremities: + edema (tr); no calf tenderness Gastrointestinal (Abdomen) soft, nt, nd, ff/appro tender at u incision c/d/i Psychiatric A+Ox3, euthymic affect Results & Data Vital Signs (Past 12 Hours) Vital Signs Temp Pulse Resp BP Pulse Ox O2 Del Method 09/15/25 23:35 36.5 C 86 16 125/78 98 Room Air
[2025-09-16 09:00] VITALS: BP 130/84; PULSE 89; RESP 18; O2SAT 99
[2025-09-16] MEDS ORDERED: IBUPROFEN 600 MG TAB PO PRN (14:32)
[2025-09-16] MEDS ORDERED: ACETAMINOPHEN 325 MG TAB PO PRN (20:32)
--- NOTE | 2025-09-17 11:46 | Discharge Summary ---
Date of Service September 17, 2025 Admission HPI Per Admitting Provider Patient is a 24yowf who presents for IOL--postdates and Delivery Plans Hepatitis B Non Immune *Recommend Hepatitis B Vaccine Dilated stomach on anatomy -mfm consult 05/03/25 -MFM US normal BMI 35-39 Beginning of *Growth US at 32wks *NSTs weekly at 36wks Gestational Diabetes Growth u/s q 4 weeks IOL PD 09/13 Discharge Data Consultations 09/13/25 14:44 Consult Anesthesiology Stat Procedures Performed Operation Date: 09/14/25 12:55 Actual Procedures p Section in LD [facility] @ 1356 - Lynne Hendrix MD, [facility] Course (1) delivery delivered: (2) Non-reassuring electronic monitoring tracing: Plan Patient presented later in the day for postdates iol. Had moreno, pitocin, arom, iupc. She got to 4cm. WAs unable to get into a good contraction pattern without nrfht. Would resolve with d/c of pitocin. Discussed options and proceeded with c/s. Patient underwent a primary low c/s without complication, QBL--[id number]. Postop course uncomplicated--tolerated a regular diet, voided after removal of Moreno, ambulated without difficulty, tolerated oral pain meds. d/c home on postop day #2. discharge h/h 10.1/30.0. Instructions reviewed and f/u in 6 weeks. Coding Level of Care Code None Diagnoses delivery delivered O82 Non-reassuring electronic monitoring tracing O36.8390
== END 2025-09-16 14:25 | disposition home or self-care (01) | DRG 788 ==
LOC: 4S1 14:31 → 4E2 09-14 17:43